=== PATIENT | female | born 1945 | race Caucasian/White ===

== ENCOUNTER 2021-04-11 19:59 | Emergency (ER) | payer MEDICARE, BC ==
[2021-04-11] MEDS ORDERED: Ciprofloxacin 500 MG Tab PO ONE ×2 (20:00→21:04)
[2021-04-11] MEDS ORDERED: Phenazopyridine 95 MG Tab PO ONE ×3 (20:00→21:08)
--- NOTE | 2021-04-11 20:38 | EDM.PDOC ---
ED HPI GENERAL MEDICAL PROBLEM - General Chief Complaint: Genitourinary Problem Stated Complaint: KIDNEY INFECTION ISHMAEL, PER PT Time Seen by Provider: 04/11/21 20:25 Source of Information: Reports: Patient History Limitations: Reports: No Limitations - History of Present Illness INITIAL COMMENTS - FREE TEXT/NARRATIVE: ED with c/o onset urinary urgency and burning with urination this audra. Prior hx UTI's in past. Has been seen recently by urology and no abnormalities found. Treated for UTI in October and February. Does not recall antibiotic. Chills with urination. no fever. Noted blood in urine tonight Similar to October. - Related Data Allergies Allergy/AdvReac Type Severity Reaction Status Date / Time No Known Allergies Allergy Verified 04/11/21 20:08 Home Meds: Home Meds Simvastatin 20 mg PO BEDTIME 05/28/14 [History] SUMAtriptan Succinate [Imitrex] 100 mg PO ASDIRECTED PRN 08/05/14 [History] Ascorbic Acid 1,000 mg PO DAILY 08/22/19 [History] Calcium Carbonate/Vitamin D3 [Calcium 600 + Vit D Tablet] 1 tab PO DAILY 08/22/19 [History] Rvhz-Gbei-Hgzko [Cataract Opthalmic Solution] 1 drop EYERT ASDIRECTED 08/22/19 [History] Vit A/C/E/Zinc/Selenium/Copper [Vision Formula Tablet] 1 tab PO DAILY 08/22/19 [History] Past Medical History HEENT History: Reports: Cataract, Impaired Vision Cardiovascular History: Reports: High Cholesterol Respiratory History: Reports: None Gastrointestinal History: Reports: None Genitourinary History: Reports: None 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: Musculoskeletal History: Reports: Fracture, Osteoporosis Neurological History: Reports: None Psychiatric History: Reports: None Endocrine/Metabolic History: Reports: Obesity/BMI 30+, Osteopenia Hematologic History: Reports: None Immunologic History: Reports: None Oncologic (Cancer) History: Reports: None Dermatologic History: Reports: None - Infectious Disease History Infectious Disease History: Reports: Chicken Pox, Mumps - Past Surgical History Head Surgeries/Procedures: Reports: None HEENT Surgical History: Reports: Adenoidectomy, Tonsillectomy Cardiovascular Surgical History: Reports: None Respiratory Surgical History: Reports: None GI Surgical History: Reports: Colonoscopy Endocrine Surgical History: Reports: None Neurological Surgical History: Reports: None Musculoskeletal Surgical History: Reports: None Oncologic Surgical History: Reports: None Dermatological Surgical History: Reports: None Social & Family History - Tobacco Use Tobacco Use Status *Q: Never Tobacco User - Caffeine Use Caffeine Use: Reports: Coffee Caffeine Use Comment: 3 CUPS DAILY - Recreational Drug Use Recreational Drug Use: No - Living Situation & Occupation Living situation: Reports: , with Family Occupation: Retired ED ROS GENERAL - Review of Systems Review Of Systems: Comprehensive ROS is negative, except as noted in HPI. ED EXAM, RENAL/ - Physical Exam Exam: See Below Exam Limited By: No Limitations General Appearance: Alert, Mild Distress Eye Exam: Bilateral Eye: EOMI Ears: Normal External Exam Nose: Normal Inspection Throat/Mouth: Normal Inspection Head: Atraumatic, Normocephalic Neck: Normal Inspection Respiratory/Chest: No Respiratory Distress, Lungs Clear, Normal Breath Sounds Cardiovascular: Regular Rate, Rhythm GI/Abdominal: Normal Bowel Sounds, Other (supropubic tenderness with palpation) Back Exam: No: CVA Tenderness (L), CVA Tenderness (R) Course - Vital Signs Last Recorded V/S: Last Vital Signs Temp 97.3 F 04/11/21 20:12 Pulse 80 04/11/21 20:12 Resp 16 04/11/21 20:12 BP 163/79 H 04/11/21 20:12 Pulse Ox 100 04/11/21 20:12 - Orders/Labs/Meds Orders: Active Orders 24 hr Category Date Time Status CULTURE BLOOD [BC] Stat Lab 04/11/21 20:45 Results CULTURE URINE [RM] Stat Lab 04/11/21 20:01 Received Blood Culture x2 Reflex Set [OM.PC] Stat Oth 04/11/21 20:06 Ordered Labs: Laboratory Tests 04/11/21 04/11/21 04/11/21 Range/Units 20:01 20:45 20:45 WBC 9.0 (5.0-10.0) 10^3/uL RBC 4.45 (4.2-5.4) 10^6/uL Hgb 14.4 (12.0-16.0) g/dL Hct 42.5 (37.0-47.0) % MCV 95.5 (80-100) fL MCH 32.4 (27.0-34.0) pg MCHC 33.9 (33.0-35.0) g/dL Plt Count 349 (150-450) 10^3/uL Neut % (Auto) 61.9 (42.2-75.2) % Lymph % (Auto) 26.9 (20.5-50.1) % [place] % (Auto) 8.5 H (2-8) % Eos % (Auto) 2.5 (1.0-3.0) % Baso % (Auto) 0.2 (0.0-1.0) % Sodium 139 (136-145) mmol/L Potassium 4.8 (3.5-5.1) mmol/L Chloride 104 (98-107) mmol/L Carbon Dioxide 26 (21-32) mmol/L Anion Gap 13.8 H (7-13) mEq/L BUN 23 H (7-18) mg/dL Creatinine 0.90 (0.55-1.02) mg/dL Est Cr Clr Drug Dosing 54.14 mL/min Estimated GFR (MDRD) > 60 BUN/Creatinine Ratio 25.6 (No establ ref range) Glucose 113 H (70-99) mg/dL Lactic Acid (0.4-2.0) mmol/L Calcium 9.2 (8.5-10.1) mg/dL Total Bilirubin 0.3 (0.2-1.0) mg/dL AST 21 (15-37) U/L ALT 27 (14-59) U/L Alkaline Phosphatase 76 (46-116) U/L Total Protein 7.2 (6.4-8.2) g/dL Albumin 4.1 (3.4-5.0) g/dL Globulin 3.1 Albumin/Globulin Ratio 1.3 Urine Color Red (YELLOW) Urine Appearance Turbid (CLEAR) Urine pH 6.0 (5.0-9.0) Ur Specific [place] 1.015 (1.005-1.030) Urine Protein >=300 H (NEGATIVE) Urine Glucose (UA) 100 H (NEGATIVE) Urine Ketones 15 H (NEGATIVE) Urine Occult Blood Large H (NEGATIVE) Urine Nitrite Negative (NEGATIVE) Urine Bilirubin Large H (NEGATIVE) Urine Urobilinogen 2.0 H (0.2-1.0) mg/dL Ur Leukocyte Esterase Large H (NEGATIVE) Urine RBC Packed H (0-5) /HPF Urine WBC 30-40 H (0-5/HPF) /HPF Ur Epithelial Cells Moderate H (NOT SEEN) /HPF Urine Bacteria Moderate H (0-FEW/HPF) /HPF 04/11/21 Range/Units 20:45 WBC (5.0-10.0) 10^3/uL RBC (4.2-5.4) 10^6/uL Hgb (12.0-16.0) g/dL Hct (37.0-47.0) % MCV (80-100) fL MCH (27.0-34.0) pg MCHC (33.0-35.0) g/dL Plt Count (150-450) 10^3/uL Neut % (Auto) (42.2-75.2) % Lymph % (Auto) (20.5-50.1) % [place] % (Auto) (2-8) % Eos % (Auto) (1.0-3.0) % Baso % (Auto) (0.0-1.0) % Sodium (136-145) mmol/L Potassium (3.5-5.1) mmol/L Chloride (98-107) mmol/L Carbon Dioxide (21-32) mmol/L Anion Gap (7-13) mEq/L BUN (7-18) mg/dL Creatinine (0.55-1.02) mg/dL Est Cr Clr Drug Dosing mL/min Estimated GFR (MDRD) BUN/Creatinine Ratio (No establ ref range) Glucose (70-99) mg/dL Lactic Acid 0.9 (0.4-2.0) mmol/L Calcium (8.5-10.1) mg/dL Total Bilirubin (0.2-1.0) mg/dL AST (15-37) U/L ALT (14-59) U/L Alkaline Phosphatase (46-116) U/L Total Protein (6.4-8.2) g/dL Albumin (3.4-5.0) g/dL Globulin Albumin/Globulin Ratio Urine Color (YELLOW) Urine Appearance (CLEAR) Urine pH (5.0-9.0) Ur Specific [place] (1.005-1.030) Urine Protein (NEGATIVE) Urine Glucose (UA) (NEGATIVE) Urine Ketones (NEGATIVE) Urine Occult Blood (NEGATIVE) Urine Nitrite (NEGATIVE) Urine Bilirubin (NEGATIVE) Urine Urobilinogen (0.2-1.0) mg/dL Ur Leukocyte Esterase (NEGATIVE) Urine RBC (0-5) /HPF Urine WBC (0-5/HPF) /HPF Ur Epithelial Cells (NOT SEEN) /HPF Urine Bacteria (0-FEW/HPF) /HPF Meds: Medications Discontinued Medications Generic Name Dose Route Start Last Admin Trade Name Freq PRN Reason Stop Dose Admin Ciprofloxacin 500 mg 04/11/21 21:04 04/11/21 21:20 Ciprofloxacin 500 Mg Tab PO 04/11/21 21:05 500 mg ONETIME ONE Administration Ciprofloxacin Confirm 04/11/21 21:15 04/11/21 21:23 Ciprofloxacin 500 Mg Tab Administered 04/11/21 21:16 Not Given Dose 500 mg .ROUTE .STK-MED ONE Phenazopyridine HCl 190 mg 04/11/21 21:08 04/11/21 21:20 Phenazopyridine 95 Mg Tab PO 04/11/21 21:09 190 mg ONETIME ONE Administration Phenazopyridine HCl Confirm 04/11/21 21:15 04/11/21 21:23 Phenazopyridine 95 Mg Tab Administered 04/11/21 21:16 Not Given Dose 190 mg .ROUTE .STK-MED ONE Departure - Departure Time of Disposition: 21:14 Disposition: Home, Self-Care 01 Condition: Good Clinical Impression: UTI, Urinary tract infectious disease - Discharge Information *PRESCRIPTION DRUG MONITORING PROGRAM REVIEWED*: No *COPY OF PRESCRIPTION DRUG MONITORING REPORT IN PATIENT ROHAN: No Instructions: Urinary Tract Infection, Adult, Mida-[id number] Forms: ED Department Discharge Additional Instructions: increase fluid intake phenazopyridine 190mg every 8 hours as needed for urinary spasm cipro 500mg twice daily x 5 days clinic follow up next week, sooner if fever chills nausea vomiting or flank pain Sepsis Event Note (ED) - Evaluation Sepsis Screening Result: No Definite Risk - Focused Exam Vital Signs: Vital Signs Temp Pulse Resp BP Pulse Ox 04/11/21 20:12 97.3 F 80 16 163/79 H 100 - My Orders Last 24 Hours: My Active Orders 04/11/21 20:01 CULTURE URINE [RM] Stat 04/11/21 20:06 Blood Culture x2 Reflex Set [OM.PC] Stat 04/11/21 20:45 CULTURE BLOOD [BC] Stat - Assessment/Plan Last 24 Hours: My Active Orders 04/11/21 20:01 CULTURE URINE [RM] Stat 04/11/21 20:06 Blood Culture x2 Reflex Set [OM.PC] Stat 04/11/21 20:45 CULTURE BLOOD [BC] Stat
[2021-04-11] MEDS ORDERED: Phenazopyridine 95 MG Tab ONE (21:15)
[2021-04-11] MEDS ORDERED: Ciprofloxacin 500 MG Tab ONE (21:15)
[2021-04-11 21:17] LABS: ANION GAP 13.8 mEq/L (7-13); CHLORIDE,CL 104 mmol/L (98-107); SODIUM,NA 139 mmol/L (136-145)
== END 2021-04-11 21:24 | disposition home or self-care (01) ==
LOC: DL.ED 19:59
DX: N39.0 Urinary tract infection, site not specified (principal); E78.00 Pure hypercholesterolemia, unspecified; E66.9 Obesity, unspecified; Z68.23 Body mass index [BMI] 23.0-23.9, adult; Z79.899 Other long term (current) drug therapy
CPT/HCPCS: 36415; 80053; 81001; 83605; 85025; 87040; 87086; 87088; 87186; 99283; A9270

== ENCOUNTER 2021-04-20 03:52 | Emergency (ER) | payer MEDICARE, BC ==
--- NOTE | 2021-04-20 04:20 | EDM.PDOC ---
ED HPI GENERAL MEDICAL PROBLEM - General Chief Complaint: Genitourinary Problem Stated Complaint: SEVERE BLADDER INFECTION WITH BLEEDING Time Seen by Provider: 04/20/21 04:05 Source of Information: Reports: Patient History Limitations: Reports: No Limitations - History of Present Illness INITIAL COMMENTS - FREE TEXT/NARRATIVE: This 75 yo female patient reports to the ED with urinary frequency, burning with urination and blood in her urine. The patient was seen in the ED 1 week ago with similar symptoms, started on Cipro for 5 days and was feeling good. The patient reports this morning at 0230 she started to have urgency, frequency and burning. Onset: Today Onset Date: 04/20/21 Onset Time: 02:30 Duration: Constant Location: Reports: Abdomen Quality: Reports: Other Severity: Moderate Improves with: Reports: None Worsens with: Reports: None Context: Reports: Other Associated Symptoms: Reports: No Other Symptoms - Related Data Allergies Allergy/AdvReac Type Severity Reaction Status Date / Time No Known Allergies Allergy Verified 04/11/21 20:08 Home Meds: Home Meds Simvastatin 20 mg PO BEDTIME 05/28/14 [History] SUMAtriptan Succinate [Imitrex] 100 mg PO ASDIRECTED PRN 08/05/14 [History] Ascorbic Acid 1,000 mg PO DAILY 08/22/19 [History] Calcium Carbonate/Vitamin D3 [Calcium 600 + Vit D Tablet] 1 tab PO DAILY 08/22/19 [History] Lecf-Vveh-Ebwoy [Cataract Opthalmic Solution] 1 drop EYERT ASDIRECTED 08/22/19 [History] Vit A/C/E/Zinc/Selenium/Copper [Vision Formula Tablet] 1 tab PO DAILY 08/22/19 [History] Past Medical History HEENT History: Reports: Cataract, Impaired Vision Cardiovascular History: Reports: High Cholesterol Respiratory History: Reports: None Gastrointestinal History: Reports: None Genitourinary History: Reports: 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: Musculoskeletal History: Reports: Fracture, Osteoporosis Neurological History: Reports: None Psychiatric History: Reports: None Endocrine/Metabolic History: Reports: Obesity/BMI 30+, Osteopenia Hematologic History: Reports: None Immunologic History: Reports: None Oncologic (Cancer) History: Reports: None Dermatologic History: Reports: None - Infectious Disease History Infectious Disease History: Reports: Chicken Pox, Mumps - Past Surgical History Head Surgeries/Procedures: Reports: None HEENT Surgical History: Reports: Adenoidectomy, Tonsillectomy Cardiovascular Surgical History: Reports: None Respiratory Surgical History: Reports: None GI Surgical History: Reports: Colonoscopy Endocrine Surgical History: Reports: None Neurological Surgical History: Reports: None Musculoskeletal Surgical History: Reports: None Oncologic Surgical History: Reports: None Dermatological Surgical History: Reports: None Social & Family History - Tobacco Use Tobacco Use Status *Q: Never Tobacco User Second Hand Smoke Exposure: No - Caffeine Use Caffeine Use: Reports: Coffee Caffeine Use Comment: 3 CUPS DAILY - Living Situation & Occupation Living situation: Reports: , with Family Occupation: Retired ED ROS GENERAL - Review of Systems Review Of Systems: Comprehensive ROS is negative, except as noted in HPI. ED EXAM, RENAL/ - Physical Exam Exam: See Below Exam Limited By: No Limitations General Appearance: Alert, WD/WN, No Apparent Distress Eye Exam: Bilateral Eye: EOMI, Normal Inspection, PERRL Ears: Normal External Exam, Normal Canal, Hearing Grossly Normal, Normal TMs Nose: Normal Inspection, Normal Mucosa, No Blood Throat/Mouth: Normal Inspection, Normal Lips, Normal Teeth, Normal Gums, Normal Oropharynx, Normal Voice, No Airway Compromise Head: Atraumatic, Normocephalic Neck: Normal Inspection, Supple, Non-Tender, Full Range of Motion Respiratory/Chest: No Respiratory Distress, Lungs Clear, Normal Breath Sounds, No Accessory Muscle Use, Chest Non-Tender Cardiovascular: Normal Peripheral Pulses, Regular Rate, Rhythm, No Edema, No Gallop, No JVD, No Murmur, No Rub GI/Abdominal: Normal Bowel Sounds, Soft, No Organomegaly, No Distention, No Abnormal Bruit, No Mass, Pelvis Stable, Tender (lower abdomen) (Female) Exam: Deferred Rectal (Female) Exam: Deferred Back Exam: Normal Inspection, Full Range of Motion, NT Extremities: Normal Inspection, Normal Range of Motion, Non-Tender, Normal Capillary Refill, No Pedal Edema Neurological: Alert, Oriented, CN II-XII Intact, Normal Cognition, Normal Gait, Normal Reflexes, No Motor/Sensory Deficits Psychiatric: Normal Affect, Normal Mood Skin Exam: Warm, Dry, Intact, Normal Color, No Rash Lymphatic: No Adenopathy Course - Vital Signs Last Recorded V/S: Last Vital Signs Temp 97.9 F 04/20/21 04:06 Pulse 99 04/20/21 04:06 Resp 18 08/14/21 04:06 BP 138/76 04/20/21 04:06 Pulse Ox 99 04/20/21 04:06 - Orders/Labs/Meds Orders: Active Orders 24 hr Category Date Time Status CULTURE URINE [RM] Urgent Lab 04/20/21 04:04 Received cephALEXin [Keflex] Med 04/20/21 04:21 Once 500 mg PO ONETIME ONE Labs: Laboratory Tests 04/20/21 Range/Units 04:04 Urine Color Only (YELLOW) Urine Appearance Turbid (CLEAR) Urine pH 6.5 (5.0-9.0) Ur Specific [place] 1.015 (1.005-1.030) Urine Protein 100 H (NEGATIVE) Urine Glucose (UA) 100 H (NEGATIVE) Urine Ketones Negative (NEGATIVE) Urine Occult Blood Large H (NEGATIVE) Urine Nitrite Positive H (NEGATIVE) Urine Bilirubin Small H (NEGATIVE) Urine Urobilinogen 1.0 (0.2-1.0) mg/dL Ur Leukocyte Esterase Large H (NEGATIVE) Urine RBC >100 H (0-5) /HPF Urine WBC >100 H (0-5/HPF) /HPF Ur Epithelial Cells Few (NOT SEEN) /HPF Amorphous Sediment Moderate H (NOT SEEN) /HPF Urine Bacteria Moderate H (0-FEW/HPF) /HPF Urine Mucus Few H (NOT SEEN) /LPF Departure - Departure Time of Disposition: :21 Disposition: Home, Self-Care 01 Condition: Fair Clinical Impression: UTI (urinary tract infection) Qualifiers: Urinary tract infection type: site unspecified Hematuria presence: with hematuria Qualified Code(s): N39.0 - Urinary tract infection, site not specified - Discharge Information *PRESCRIPTION DRUG MONITORING PROGRAM REVIEWED*: Not Applicable *COPY OF PRESCRIPTION DRUG MONITORING REPORT IN PATIENT ROHAN: Not Applicable Instructions: Urinary Tract Infection, Adult, [id number] Forms: ED Department Discharge Care Plan Goals: The patient was advised of the examination and lab results during the visit. The patient was given a dose of keflex (500 mg) while in the ED. The patient was discharged with a script for Keflex (500 mg) #20 to take 1 by mouth 2 times per day for 10 days. The patient was encouraged to increase her oral fluid intake. If the patient has any additional symptoms or concerns, the patient should either return to the emergency department or visit her primary care facility. Sepsis Event Note (ED) - Focused Exam Vital Signs: Vital Signs Temp Pulse Resp BP Pulse Ox 04/20/21 04:06 97.9 F 99 18 138/76 99 - My Orders Last 24 Hours: My Active Orders 04/20/21 04:04 CULTURE URINE [RM] Urgent 04/20/21 04:21 cephALEXin [Keflex] 500 mg PO ONETIME ONE - Assessment/Plan Last 24 Hours: My Active Orders 04/20/21 04:04 CULTURE URINE [RM] Urgent 04/20/21 04:21 cephALEXin [Keflex] 500 mg PO ONETIME ONE
[2021-04-20] MEDS ORDERED: Cephalexin 500 MG Cap PO ONE (04:21)
== END 2021-04-20 04:30 | disposition home or self-care (01) ==
LOC: DL.ED 03:52
DX: N39.0 Urinary tract infection, site not specified (principal); R31.9 Hematuria, unspecified; E78.00 Pure hypercholesterolemia, unspecified; E66.9 Obesity, unspecified; Z68.23 Body mass index [BMI] 23.0-23.9, adult; Z79.899 Other long term (current) drug therapy
CPT/HCPCS: 81001; 87086; 99283; A9270

== ENCOUNTER 2022-08-12 02:58 | Emergency (ER) | payer MEDICARE, OTHER ==
[~2022-08-12 02:58] MED LIST: Metoclopramide 10 MG/2 ML SDV IVPUSH ONE; diphenhydrAMINE 50 MG/ML SDV IVPUSH ONE
[2022-08-12 03:50] LABS: ANION GAP 18.8 mEq/L (7-13); CHLORIDE,CL 105 mmol/L (98-107); SODIUM,NA 140 mmol/L (136-145)
[2022-08-12 03:53] LABS: ESTIMATED GFR 73 mL/min (>=60)
[2022-08-12] MEDS ORDERED: Iopamidol 612 MG/ML 100 ML Bottle IVPUSH ONE (04:33)
[2022-08-12] MEDS ORDERED: Sodium Chloride 0.9% 1,000 ML IV ONE (04:34)
[2022-08-12 06:48] LABS: AMPHETAMINES,URINE NEGATIVE (NEGATIVE); BARBITURATES,URINE NEGATIVE (NEGATIVE); BENZODIAZEPINE,URINE NEGATIVE (NEGATIVE); MDMA (ECSTASY), URINE NEGATIVE (NEGATIVE); METHADONE,URINE NEGATIVE (NEGATIVE); METHAMPHETAMINES,URINE NEGATIVE (NEGATIVE); OPIATES,URINE NEGATIVE (NEGATIVE); OXYCODONE,URINE NEGATIVE (NEGATIVE); PHENCYCLIDINE,URINE NEGATIVE (NEGATIVE); TCA,URINE NEGATIVE (NEGATIVE)
== END 2022-08-12 07:21 | disposition home or self-care (01) ==
LOC: DL.ED 02:58
DX: N28.1 Cyst of kidney, acquired (principal); K57.30 Diverticulosis of large intestine without perforation or abscess without bleeding; H61.23 Impacted cerumen, bilateral; E78.00 Pure hypercholesterolemia, unspecified; E66.9 Obesity, unspecified; Z68.24 Body mass index [BMI] 24.0-24.9, adult; Z79.899 Other long term (current) drug therapy; Z20.822 Contact with and (suspected) exposure to COVID-19
CPT/HCPCS: 36415; 70450; 74177; 80053; 80305; 80307; 81001; 83605; 83735; 84443; 84484; 85025; 86140; 93005; 96361; 96374; 96375; 99285; J1200; J2765; J7030; Q9967; U0002

== ENCOUNTER 2023-08-01 09:47 | Emergency (ER) | payer MEDICARE, OTHER ==
[2023-08-01] MEDS ORDERED: Ciprofloxacin 0.3% Ophth Soln 5 ML Bottle EYEBOTH ONE (12:45)
== END 2023-08-01 13:15 | disposition home or self-care (01) ==
LOC: DL.ED 09:47
DX: H10.023 Other mucopurulent conjunctivitis, bilateral (principal); E78.00 Pure hypercholesterolemia, unspecified; E66.9 Obesity, unspecified; Z68.23 Body mass index [BMI] 23.0-23.9, adult; Z79.899 Other long term (current) drug therapy
CPT/HCPCS: 99282; 99283; A9270-GY